=== PATIENT | female | born 1975 | race Caucasian/White ===

== ENCOUNTER → 2017-10-12 | Outpatient (CLI) | payer OTHER | LOC: FIMAGING 07:41 | PROVIDERS: ATTEND Radiology Diagnostic Radiology | DX: I83.891 Varicose veins of right lower extremity with other complications (principal) ==

== ENCOUNTER → 2018-01-22 | Day surgery (SDC) | payer OTHER ==
[~2018-01-22] MED LIST: FLUMAZENIL 0.5 MG/5 ML MDV IVP ONE; FLUMAZENIL 0.5 MG/5 ML MDV IVP PRN; HYDROCODONE/APAP 5/325 TAB PO PRN; IBUPROFEN 200 MG TAB PO ONE; LIDO/EPI 1% **for epidural** 30 ML SDV ONE; MIDAZOLAM 2 MG/2 ML VIAL IVP PRN; MIDAZOLAM 2 MG/2 ML VIAL ONE; NALOXONE HCL 0.4 MG/ML INJ IVP PRN; NALOXONE HCL 0.4 MG/ML INJ ONE; NS 1,000 ML IV ONE; NS 1,000 ML IV SCH; ONDANSETRON 4 MG/2 ML VIAL IVP ONE; ONDANSETRON 4 MG/2 ML VIAL IVP PRN; ONDANSETRON DISINTEGRATING 4 MG TAB PO PRN; SODIUM TETRADECYL SULFATE 3% 2 ML VIAL IV ONE; ceFAZolin 2 GM/DEXTROSE 100 ML IV ONE; fentaNYL 100 MCG/2 ML INJ IVP PRN; fentaNYL 100 MCG/2 ML INJ ONE
--- NOTE | 2018-01-22 08:57 | PDPROPOC ---
Sedation Plan of Care Sedation Plan of Care: vital signs stable, mental status noted, patient educated of risks, benefits, alternatives, patient can tolerate sedation ASA Classification: ASA 1 Planned drugs: fentanyl, midazolam Mallampati Score: Class 1 Mallampati Reference Image: Patient passed 3-3-2 rule?: Yes
--- NOTE | 2018-01-22 08:57 | PDGENHP ---
History & Physical Chief Complaint: EXTENSIVE RLE VARICOSE VEINS History of Present Illness: PAINFUL VEINS, ESPECIALLY ON RT LATERAL KNEE. Pertinent Past, Social, Family History: TUBAL LIGATION, RT ARM FRACTURE Relevant Physical Exam: ROPEY VARICOSE VEINS MAPPED OUT. Cardiorespiratory Assessment: RRR, CTA
--- NOTE | 2018-01-22 11:16 | PDRADPN ---
Radiology Procedure Note Date of Procedure: 01/22/18 Radiologist: Nikki Cervantes Anesthesia: IV Sedation Pre-op Diagnosis: RLE VARICOSE VEINS Post-op Diagnosis: SAME Indication: PAIN AND SWELLING Procedure: LASER ALBATION, PHLEBECTOMY, SCLEROTHERAPY. Finding(s): SEE REPORT Inf/Abcess present in the surg proc area at time of surgery?: No
[2018-01-22 15:03] VITALS: BP 98/59
== END | disposition home or self-care (01) ==
LOC: FIMAGING 07:39
PROVIDERS: ATTEND Radiology Diagnostic Radiology
PROC: 06DP3ZZ Extraction of Right Saphenous Vein, Percutaneous Approach (ICD-10-PCS; principal; 2018-01-22 10:15)
PROC: 3E033TZ Introduction of Destructive Agent into Peripheral Vein, Percutaneous Approach (ICD-10-PCS; principal; 2018-01-22 10:15)
PROC: 065P3ZZ Destruction of Right Saphenous Vein, Percutaneous Approach (ICD-10-PCS; principal; 2018-01-22 10:15)
DX: I83.811 Varicose veins of right lower extremity with pain (principal)
CPT/HCPCS: J0690; J2250; J2310; J3010